=== PATIENT | female | born 1970 | race Two or more races ===

== ENCOUNTER 2017-01-20 18:00 | Inpatient (IN) | payer SELFPAY ==
[2017-01-20] MEDS ORDERED: ONDANSETRON 4 MG TAB.RAPDIS PO ONE (19:05)
[2017-01-20] MEDS ORDERED: LANSOPRAZOLE 30 MG TAB.RAP.DR PO ONE (19:07)
--- NOTE | 2017-01-20 19:10 | ER Document Report ---
ED Medical Screen (RME) - General Chief Complaint: Abdominal Injury Stated Complaint: POSSIBLE SEIZURE Time seen by provider: 19:03 Mode of Arrival: Ambulatory Information source: Patient Notes: 46 yo female with 2 minute full body new seizure witnessed by almost daughter in law, bit tongue, foaming at mouth, took 10 minutes to becom conscious. No ETOH in 2 months, cold turkey-2-3 shots daily. Has nausea, tremors, and upper abdominal pain now.
[2017-01-20] MEDS ORDERED: LORAZEPAM INJ 2 MG/1 ML VIAL IV ONE (21:14)
[2017-01-20] MEDS ORDERED: LEVETIRACETAM 500 MG TABLET PO ONE (21:20)
--- NOTE | 2017-01-20 21:20 | ER Document Report ---
ED General - General Chief Complaint: Probable Seizure Stated Complaint: POSSIBLE SEIZURE Mode of Arrival: Wheelchair Information source: Patient Notes: 46-year-old female presents after a seizure episode lasting a few minutes prior to arrival, patient bit her tongue. Patient was brought to the trauma bay after having a second seizure in the emergency department. Patient notes she has not had alcohol in 2-3 months. Denies drug or any other medications TRAVEL OUTSIDE OF THE [place] IN LAST 30 DAYS: No - HPI Onset: Just prior to arrival Onset/Duration: Sudden Quality of pain: Achy Severity: Mild Pain Level: 1 Associated symptoms: Other Exacerbated by: Denies Relieved by: Denies Similar symptoms previously: No Recently seen / treated by doctor: No - Related Data Allergies/Adverse Reactions: No Known Allergies Allergy (Unverified 01/20/17 19:09) Home Medications: Current Home Medications No Home Medications 01/20/17 [History] Past Medical History - General Information source: Patient - Social History Smoking Status: Never Smoker Cigarette use (# per day): No Chew tobacco use (# tins/day): No Smoking Education Provided: No Family History: Reviewed & Not Pertinent Renal/ Medical History: Denies: Hx Peritoneal Dialysis Review of Systems - Review of Systems Notes: REVIEW OF SYSTEMS: CONSTITUTIONAL : Denies fever, chills, or sweats. Denies recent illness. EENT: Denies eye, ear, throat, or mouth pain or symptoms. Denies nasal or sinus congestion or discharge. Denies throat, tongue, or mouth swelling or difficulty swallowing. CARDIOVASCULAR: Denies chest pain. Denies palpitations or racing or irregular heart beat. Denies ankle edema. RESPIRATORY: Denies cough, cold, or chest congestion. Denies shortness of breath, difficulty breathing, or wheezing. GASTROINTESTINAL: Denies abdominal pain or distention. Denies nausea, vomiting , or diarrhea. Denies blood in vomitus, stools, or per rectum. Denies black, tarry stools. Denies constipation. GENITOURINARY: Denies difficulty urinating, painful urination, burning, frequency, blood in urine, or discharge. FEMALE GENITOURINARY: Denies vaginal bleeding, heavy or abnormal periods, irregular periods. Denies vaginal discharge or odor. MUSCULOSKELETAL: Denies back or neck pain or stiffness. Denies joint pain or swelling. SKIN: Denies rash, lesions or sores. HEMATOLOGIC : Denies easy bruising or bleeding. LYMPHATIC: Denies swollen, enlarged glands. NEUROLOGICAL: Admits seizure PSYCHIATRIC: Denies anxiety or stress. Denies depression, suicidal ideation, or homicidal ideation. ALL OTHER SYSTEMS REVIEWED AND NEGATIVE. Dictation was performed using [employer] voice recognition software PHYSICAL EXAMINATION: GENERAL: Well-appearing, well-nourished and in no acute distress. HEAD: Atraumatic, normocephalic. EYES: Pupils equal round and reactive to light, extraocular movements intact, conjunctiva are normal. ENT: Nares patent, oropharynx clear without exudates. Moist mucous membranes. Patient bit her tongue contusion with abrasion of the right anterior tip NECK: Normal range of motion, supple without lymphadenopathy LUNGS: Breath sounds clear to auscultation bilaterally and equal. No wheezes rales or rhonchi. HEART: Regular rate and rhythm without murmurs ABDOMEN: Soft, nontender, nondistended abdomen. No guarding, no rebound. No masses appreciated. Female : deferred Musculoskeletal: Normal range of motion, no pitting or edema. No cyanosis. NEUROLOGICAL: Patient was seizing in the trauma bay Cranial nerves grossly intact. Normal speech, normal gait. Normal sensory, motor exams PSYCH: Normal mood, normal affect. SKIN: Warm, Dry, normal turgor, no rashes or lesions noted. Physical Exam - Vital signs Vitals: Temp Pulse BP Pulse Ox 98.1 F 73 149/90 H 98 01/20/17 19:08 01/20/17 19:08 01/20/17 19:08 01/20/17 19:08 Course - Re-evaluation Re-evalutation: 01/20/17 21:14 Patient brought back emergently 01/20/17 21:41 Lab work is pending right now, CT of the head was negative patient will be given a loading dose of Keppra and Ativan 01/20/17 23:18 Patient's friend who she is staying with states the patient last drank yesterday , this would explain the patient's seizures. I will admit for alcohol withdrawal - Vital Signs Vital signs: Temp Pulse Resp BP Pulse Ox 98.1 F 73 29 H 157/110 H 96 01/20/17 19:08 01/20/17 19:08 01/20/17 22:05 01/20/17 22:01 01/20/17 22:05 - Laboratory Result Diagrams: 01/20/17 21:10 01/20/17 21:10 Laboratory results interpreted by me: 01/20/17 01/20/17 01/20/17 21:04 21:10 21:10 RBC 3.33 L Hgb 11.8 L Hct 35.5 L MCV 107 H MCH 35.4 H RDW 20.3 H Plt Count 123 L Chloride 96 L Carbon Dioxide 20 L Anion Gap 27 H BUN 3 L Glucose 133 H POC Glucose 136 H Total Bilirubin 2.3 H Direct Bilirubin 1.1 H AST 371 H ALT 82 H Alkaline Phosphatase 181 H Total Protein 9.2 H - Diagnostic Test Radiology reviewed: Image reviewed, Reports reviewed Discharge - Discharge Clinical Impression: Seizure Alcohol withdrawal syndrome Qualifiers: Complication of substance-induced condition: with delirium Qualified Code(s): F10.231 - Alcohol dependence with withdrawal delirium Injury of tongue Qualifiers: Encounter type: initial encounter Qualified Code(s): S09.93XA - Unspecified injury of face, initial encounter Condition: Serious Disposition: ADMITTED INPATIENT Admitting Provider: Hospitalist Unit Admitted: IMCU
[2017-01-20 21:26] LABS: ABSOLUTE LYMPHOCYTES (AUTO) 0.9 10^3/uL (0.5-4.7); ABSOLUTE MONOCYTES (AUTO) 0.5 10^3/uL (0.1-1.4); ABSOLUTE NEUT (AUTO) 4.3 10^3/uL (1.7-8.2); BASOPHILS % (AUTO) 0.8 % (0-2); EOSINOPHILS % (AUTO) 0.1 % (0-6); HEMATOCRIT 35.5 % (36.0-47.0); HEMOGLOBIN 11.8 g/dL (12.0-15.5); HGB HCT DIFFERENCE -0.1; LYMPHOCYTES % (AUTO) 15.7 % (13-45); MEAN CORPUSCULAR HEMOGLOBIN 35.4 pg (27.0-33.4); MEAN CORPUSCULAR HGB CONC 33.2 g/dL (32.0-36.0); MEAN CORPUSCULAR VOLUME 107 fl (80-97); MONOCYTES % (AUTO) 8.9 % (3-13); RED BLOOD COUNT 3.33 10^6/uL (3.72-5.28); RED CELL DISTRIBUTION WIDTH 20.3 % (11.5-14.0); SEGMENTED NEUTROPHILS % (AUTO) 74.5 % (42-78); WHITE BLOOD COUNT 5.8 10^3/uL (4.0-10.5)
[2017-01-20 21:46] LABS: ALANINE AMINOTRANSFERASE 82 U/L (9-52); ALBUMIN 4.9 g/dL (3.5-5.0); ALKALINE PHOSPHATASE 181 U/L (38-126); ASPARTATE AMINO TRANSFERASE 371 U/L (14-36); BILIRUBIN,DIRECT 1.1 mg/dL (0.0-0.4); BILIRUBIN,TOTAL 2.3 mg/dL (0.2-1.3); BLOOD UREA NITROGEN 3 mg/dL (7-20); CALCIUM 10.2 mg/dL (8.4-10.2); CREATININE RESULT 0.55 mg/dL (0.52-1.25); GLUCOSE 133 mg/dL (75-110); LIPASE 65.1 U/L (23-300); TOTAL PROTEIN 9.2 g/dL (6.3-8.2)
[2017-01-20 21:57] LABS: CARBON DIOXIDE 20 mmol/L (22-30); CHLORIDE 96 mmol/L (98-107); POTASSIUM 3.9 mmol/L (3.6-5.0); SODIUM 143.2 mmol/L (137-145)
[2017-01-20 22:02] LABS: ALCOHOL < 10 mg/dL (NONE DETECTED); ANION GAP 27 (5-19)
[2017-01-20] MEDS ORDERED: THIAMINE HCL 100 MG, FOLIC ACID 1 MG in NORMAL SALINE 50 ML IV ONE (23:22)
[2017-01-20] MEDS ORDERED: IPRATROPIUM/ALBUTEROL 0.5-2.5 MG/3 ML AMPUL NEB PRN (23:24)
[2017-01-20] MEDS ORDERED: ACETAMINOPHEN 325 MG TABLET PO PRN (23:24)
[2017-01-20] MEDS ORDERED: CALCIUM CARBONATE 500 MG TABLET PO PRN (23:24)
[2017-01-20] MEDS ORDERED: ONDANSETRON HCL INJ/PF 4 MG/2 ML SDV IV PRN (23:24)
[2017-01-20] MEDS ORDERED: LIDOCAINE 2% VISCOUS SOLN 20 ML UDCUP PO ONE (23:27)
[2017-01-20] MEDS ORDERED: NORMAL SALINE 1000 ML 1,000 ML IV ONE (23:54)
--- NOTE | 2017-01-21 00:59 | PDOC H&P ---
History of Present Illness Admission Date/PCP: 01/20/17 23:24 Patient complains of: Seizure History of Present Illness: FRANCISCO JAVIER GIVENS is a 46 year old female without significant past medical history though has not sought recent medical evaluation had been her usual state of health until approximately 1 hour prior to ER evaluation where she has an witnessed seizure resulting in tongue biting and brief "postictal state. While waiting in the emergency room she has a second seizure event with tongue biting receiving Ativan and Keppra. Her workup reveals macrocytosis, thrombocytopenia and abnormal LFTs. She does admit to substantial alcohol intake on a daily basis but was abstaining for approximately 24 hours while visiting her grandchildren and [place]. She has difficulty quantifying her regular alcohol intake but suggest several large shots and beer per day. She denies previous seizure or abstinence from alcohol. Past Medical History Medical History: None Past Surgical History Past Surgical History: Reports: None Social History Information Source: Patient Lives with: Family Smoking Status: Never Smoker Frequency of Alcohol Use: Heavy Drugs: None - Advance Directive Resuscitation Status: Full Code Family History Family History: COPD, Hypertension Parental Family History Reviewed: Yes Children Family History Reviewed: Yes Sibling(s) Family History Reviewed.: Yes Medication/Allergy Home Medications: No Home Medications 01/20/17 Allergies/Adverse Reactions: No Known Allergies Allergy (Unverified 01/20/17 19:09) Review of Systems Constitutional: ABSENT: chills, fever(s), headache(s), weight gain, weight loss Eyes: ABSENT: visual disturbances Ears: ABSENT: hearing changes Cardiovascular: ABSENT: chest pain, dyspnea on exertion, edema, orthropnea, palpitations Respiratory: ABSENT: cough, hemoptysis Gastrointestinal: ABSENT: abdominal pain, constipation, diarrhea, hematemesis, hematochezia, nausea, vomiting Genitourinary: ABSENT: dysuria, hematuria Musculoskeletal: ABSENT: joint swelling Integumentary: ABSENT: rash, wounds Neurological: ABSENT: abnormal gait, abnormal speech, confusion, dizziness, focal weakness, syncope Psychiatric: ABSENT: anxiety, depression, homidical ideation, suicidal ideation Endocrine: ABSENT: cold intolerance, heat intolerance, polydipsia, polyuria Hematologic/Lymphatic: ABSENT: easy bleeding, easy bruising Physical Exam Vital Signs: Temp Pulse Resp BP Pulse Ox 98.1 F 73 29 H 157/110 H 96 01/20/17 19:08 01/20/17 19:08 01/20/17 22:05 01/20/17 22:01 01/20/17 22:05 General appearance: PRESENT: no acute distress, cooperative, disheveled, morbidly obese Head exam: PRESENT: atraumatic, normocephalic Eye exam: PRESENT: conjunctiva pink, EOMI, PERRLA. ABSENT: scleral icterus Ear exam: PRESENT: normal external ear exam Mouth exam: PRESENT: laceration - Tongue, tongue midline Neck exam: ABSENT: carotid bruit, JVD, lymphadenopathy, thyromegaly Respiratory exam: PRESENT: clear to auscultation ann. ABSENT: rales, rhonchi, wheezes Cardiovascular exam: PRESENT: RRR. ABSENT: diastolic murmur, rubs, systolic murmur Pulses: PRESENT: normal dorsalis pedis pul Vascular exam: PRESENT: normal capillary refill GI/Abdominal exam: PRESENT: normal bowel sounds, soft. ABSENT: distended, guarding, mass, organolmegaly, rebound, tenderness Rectal exam: PRESENT: deferred Extremities exam: PRESENT: full ROM. ABSENT: calf tenderness, clubbing, pedal edema Neurological exam: PRESENT: alert, awake, oriented to person, oriented to place , oriented to time, oriented to situation, CN II-XII grossly intact. ABSENT: motor sensory deficit Psychiatric exam: PRESENT: appropriate affect, normal mood. ABSENT: homicidal ideation, suicidal ideation Skin exam: PRESENT: dry, intact, warm. ABSENT: cyanosis, rash Results Impressions: Head CT 01/20/17 19:05 IMPRESSION: No acute intracranial finding. Assessment & Plan - Diagnosis (1) Alcohol withdrawal Qualifiers: Complication of substance-induced condition: with delirium Qualified Code(s): F10.231 - Alcohol dependence with withdrawal delirium Is this a current diagnosis for this admission?: YesPlan: Difficult to quantify she receive Ativan 4 mg IV every 4 hours when necessary in addition to thymine and folate with supportive care. Patient expresses wishes for long-term cessation (2) Seizure Is this a current diagnosis for this admission?: YesPlan: History suggest secondary to abrupt alcohol cessation, continue supportive care when necessary Ativan (3) Thrombocytopenia Is this a current diagnosis for this admission?: YesPlan: Secondary to alcohol reevaluate CBC (4) Abnormal LFTs Is this a current diagnosis for this admission?: YesPlan: Secondary to alcohol reevaluate LFTs - Time Time Spent: 30 to 50 Minutes - Inpatient Certification Medical Necessity: Need Close Monitoring Due to Risk of Patient Decompensation
[2017-01-21 02:00] LABS: APPEARANCE,URINE SLIGHTLY-CLOUDY; BILIRUBIN,URINE NEGATIVE (NEGATIVE); GLUCOSE, URINE NEGATIVE (NEGATIVE); KETONES,URINE 20 mg/dL (NEGATIVE); LEUKOCYTE ESTERASE,URINE TRACE (NEGATIVE); NITRITE,URINE NEGATIVE (NEGATIVE); PROTEIN,URINE 100 mg/dL (NEGATIVE); URINE SPECIFIC GRAVITY 1.017
[2017-01-21 02:14] LABS: URINE BARBITURATES SCREEN NEGATIVE; URINE METHADONE SCREEN NEGATIVE; URINE OPIATES LOW NEGATIVE; URINE PHENCYCLIDINE SCREEN NEGATIVE
[2017-01-21] MEDS: HEPARIN SOD (PORCINE) 5,000 UNIT/ML 1 ML SYRINGE SUBCUT SCH ×3 (05:50→22:17)
[2017-01-21 07:39] LABS: ALANINE AMINOTRANSFERASE 65 U/L (9-52); ALBUMIN 3.7 g/dL (3.5-5.0); ALKALINE PHOSPHATASE 126 U/L (38-126); ANION GAP 11 (5-19); ASPARTATE AMINO TRANSFERASE 224 U/L (14-36); BILIRUBIN,DIRECT 0.6 mg/dL (0.0-0.4); BILIRUBIN,TOTAL 1.8 mg/dL (0.2-1.3); BLOOD UREA NITROGEN 3 mg/dL (7-20); CALCIUM 9.2 mg/dL (8.4-10.2); CARBON DIOXIDE 29 mmol/L (22-30); CHLORIDE 99 mmol/L (98-107); GLUCOSE 97 mg/dL (75-110); POTASSIUM 3.7 mmol/L (3.6-5.0); SODIUM 138.9 mmol/L (137-145); TOTAL PROTEIN 7.1 g/dL (6.3-8.2)
[2017-01-21 07:45] LABS: HEMATOCRIT 29.3 % (36.0-47.0); HGB HCT DIFFERENCE 0.7; MEAN CORPUSCULAR HEMOGLOBIN 36.1 pg (27.0-33.4); MEAN CORPUSCULAR HGB CONC 34.2 g/dL (32.0-36.0); MEAN CORPUSCULAR VOLUME 106 fl (80-97); RED BLOOD COUNT 2.78 10^6/uL (3.72-5.28); RED CELL DISTRIBUTION WIDTH 19.8 % (11.5-14.0); WHITE BLOOD COUNT 5.7 10^3/uL (4.0-10.5)
--- NOTE | 2017-01-21 07:51 | EKG REPORT ---
SEVERITY:- BORDERLINE ECG - SINUS RHYTHM BORDERLINE PROLONGED QT INTERVAL : Confirmed by: Blaine Dickinson MD 21-Jan-2017 07:50:45
[2017-01-21 07:55] LABS: BAND NEUTROPHILS % (MANUAL) 1 % (3-5); BASOPHILS % (MANUAL) 1 % (0-2); EOSINOPHILS % (MANUAL) 0 % (0-6); HYPOCHROMASIA 2+; LYMPHOCYTES % (MANUAL) 27 % (13-45); NUCLEATED RED BLOOD CELLS 2 /100 WBC (0); OVALOCYTES SLIGHT; POIKILOCYTOSIS 1+; POLYCHROMASIA 1+; SCHISTOCYTES SLIGHT; TARGET CELLS 3+; TOTAL CELLS COUNTED 100; TOXIC GRANULATION SLIGHT
--- NOTE | 2017-01-21 08:05 | PDOC PROGRESS REPORT ---
Subjective Progress Note for:: 01/21/17 Subjective:: Pt feels better. Had several seizure episodes. Given keppra bolus. No reported seizure since. Complains of coughing but no SOB, chills, fegver nor pleurisy. Has hx of tremors and shaking at home if not drinking alcohol and is relived after ETOH intake. Physical Exam Vital Signs: Temp Pulse Resp BP Pulse Ox 98.1 F 73 23 H 163/104 H 97 01/20/17 19:08 01/20/17 19:08 01/21/17 00:55 01/20/17 22:46 01/21/17 00:55 General appearance: PRESENT: no acute distress, cooperative, obese Head exam: PRESENT: normocephalic Eye exam: PRESENT: EOMI Mouth exam: PRESENT: moist, neck supple Neck exam: ABSENT: JVD Respiratory exam: PRESENT: clear to auscultation ann. ABSENT: rhonchi, wheezes Cardiovascular exam: PRESENT: RRR. ABSENT: gallop GI/Abdominal exam: PRESENT: normal bowel sounds, soft. ABSENT: distended, tenderness Extremities exam: ABSENT: pedal edema Neurological exam: PRESENT: alert, awake, oriented to situation, other - no tremors. Skin exam: PRESENT: dry, warm. ABSENT: cyanosis Results Laboratory Results: 01/21/17 06:58 01/21/17 06:58 01/21/17 01/21/17 01/21/17 00:28 06:58 06:58 WBC 5.7 RBC 2.78 L Hgb 10.0 L Hct 29.3 L MCV 106 H MCH 36.1 H MCHC 34.2 RDW 19.8 H Plt Count 99 L Seg Neutrophils % Not Reportable Lymphocytes % Not Reportable Monocytes % Not Reportable Eosinophils % Not Reportable Basophils % Not Reportable Absolute Neutrophils Not Reportable Absolute Lymphocytes Not Reportable Absolute Monocytes Not Reportable Absolute Eosinophils Not Reportable Absolute Basophils Not Reportable Sodium 138.9 Potassium 3.7 Chloride 99 Carbon Dioxide 29 Anion Gap 11 BUN 3 L Creatinine 0.50 L Est GFR ( Amer) > 60 Est GFR (Non-Af Amer) > 60 Glucose 97 Calcium 9.2 Total Bilirubin 1.8 H AST 224 H ALT 65 H Alkaline Phosphatase 126 Total Protein 7.1 Albumin 3.7 Urine Color YELLOW Urine Appearance SLIGHTLY-CLOUDY Urine pH 6.0 Ur Specific [place] 1.017 Urine Protein 100 H Urine Glucose (UA) NEGATIVE Urine Ketones 20 H Urine Blood SMALL H Urine Nitrite NEGATIVE Ur Leukocyte Esterase TRACE H Urine WBC (Auto) 67 Urine RBC (Auto) 28 Impressions: Head CT 01/20/17 19:05 IMPRESSION: No acute intracranial finding. Assessment & Plan - Diagnosis (1) Alcohol withdrawal Qualifiers: Complication of substance-induced condition: with delirium Qualified Code(s): F10.231 - Alcohol dependence with withdrawal delirium Is this a current diagnosis for this admission?: Yes (2) Seizure Is this a current diagnosis for this admission?: Yes (3) Abnormal LFTs Is this a current diagnosis for this admission?: Yes (4) Thrombocytopenia Is this a current diagnosis for this admission?: Yes (5) Abnormal urinalysis Is this a current diagnosis for this admission?: Yes (6) Macrocytic anemia Is this a current diagnosis for this admission?: Yes - Time Time Spent with patient: 25-34 minutes - Plan Summary Plan Summary: Cont. IVF, ativan. Start oral keppra. Give supplemental thiamine, folic acid, MVI. Begin rocephin. Check urine culture and anemia panel/stool for occult blood.
[2017-01-21 09:56] LABS: FOLATE 2.23 ng/mL (>2.76)
[2017-01-21] MEDS: FOLIC ACID 1 MG TABLET PO SCH (10:26)
[2017-01-21] MEDS: CEFTRIAXONE 1 GM/D5W RTU 50 ML IV SCH (10:26)
[2017-01-21] MEDS: DOCUSATE SODIUM 100 MG CAPSULE PO SCH (10:26)
[2017-01-21] MEDS: THIAMINE HCL 100 MG TABLET PO SCH (10:26)
[2017-01-21] MEDS: MULTIVITAMIN TABLET PO SCH (10:27)
[2017-01-21] MEDS: LEVETIRACETAM 500 MG TABLET PO SCH ×2 (10:27→22:26)
[2017-01-21] MEDS: CLONIDINE HCL 0.1 MG TABLET PO SCH ×2 (14:08→22:27)
[2017-01-21] MEDS: LORAZEPAM INJ 2 MG/1 ML VIAL IV PRN (19:32)
[2017-01-22] MEDS: HEPARIN SOD (PORCINE) 5,000 UNIT/ML 1 ML SYRINGE SUBCUT SCH ×3 (05:23→21:40)
[2017-01-22] MEDS: CLONIDINE HCL 0.1 MG TABLET PO SCH (05:25)
[2017-01-22 06:57] LABS: HEMATOCRIT 28.4 % (36.0-47.0); HEMOGLOBIN 9.7 g/dL (12.0-15.5); HGB HCT DIFFERENCE 0.7; MEAN CORPUSCULAR HEMOGLOBIN 36.2 pg (27.0-33.4); MEAN CORPUSCULAR HGB CONC 34.3 g/dL (32.0-36.0); MEAN CORPUSCULAR VOLUME 106 fl (80-97); RED BLOOD COUNT 2.69 10^6/uL (3.72-5.28); RED CELL DISTRIBUTION WIDTH 19.4 % (11.5-14.0); WHITE BLOOD COUNT 4.7 10^3/uL (4.0-10.5)
[2017-01-22 07:07] LABS: ANION GAP 11 (5-19); BLOOD UREA NITROGEN 5 mg/dL (7-20); CARBON DIOXIDE 29 mmol/L (22-30); CHLORIDE 99 mmol/L (98-107); CREATININE RESULT 0.56 mg/dL (0.52-1.25); GLUCOSE 80 mg/dL (75-110); POTASSIUM 3.1 mmol/L (3.6-5.0); SODIUM 139.2 mmol/L (137-145)
[2017-01-22] MEDS: CEFTRIAXONE 1 GM/D5W RTU 50 ML IV SCH (09:35)
[2017-01-22] MEDS: FOLIC ACID 1 MG TABLET PO SCH (09:36)
[2017-01-22] MEDS: LEVETIRACETAM 500 MG TABLET PO SCH ×2 (09:36→21:41)
[2017-01-22] MEDS: DOCUSATE SODIUM 100 MG CAPSULE PO SCH (09:36)
[2017-01-22] MEDS: THIAMINE HCL 100 MG TABLET PO SCH (09:36)
[2017-01-22] MEDS: LORAZEPAM INJ 2 MG/1 ML VIAL IV PRN (09:36)
[2017-01-22] MEDS: MULTIVITAMIN TABLET PO SCH (09:36)
--- NOTE | 2017-01-22 10:42 | PDOC PROGRESS REPORT ---
Subjective Progress Note for:: 01/22/17 Subjective:: Pt feels better. Had several seizure episodes before but not last night or yesterday. No SOB, chills, fever nor pleurisy. Soreness in the mouth from the tongue biting versus . Has hx of tremors and shaking at home if not drinking alcohol and is relived after ETOH intake. She received several doses of Ativan but patient is not having any tremors or withdrawal symptoms. Physical Exam Vital Signs: Temp Pulse Resp BP Pulse Ox 98.7 F 72 16 110/68 98 01/22/17 07:24 01/22/17 08:00 01/22/17 08:00 01/22/17 07:24 01/22/17 08:00 Intake & Output 01/21/17 01/22/17 01/23/17 06:59 06:59 06:59 Intake Total 4 Balance 4 Weight 89.9 kg General appearance: PRESENT: no acute distress, cooperative, obese Head exam: PRESENT: normocephalic Eye exam: PRESENT: EOMI Mouth exam: PRESENT: moist, neck supple Neck exam: ABSENT: JVD Respiratory exam: PRESENT: clear to auscultation ann. ABSENT: rhonchi, wheezes Cardiovascular exam: PRESENT: RRR. ABSENT: gallop GI/Abdominal exam: PRESENT: soft. ABSENT: distended, tenderness Extremities exam: ABSENT: pedal edema Neurological exam: PRESENT: alert, awake, oriented to person, oriented to place , oriented to time, oriented to situation Skin exam: PRESENT: dry, warm. ABSENT: cyanosis Results Laboratory Results: 01/22/17 06:20 01/22/17 06:20 01/22/17 01/22/17 06:20 06:20 WBC 4.7 RBC 2.69 L Hgb 9.7 L Hct 28.4 L MCV 106 H MCH 36.2 H MCHC 34.3 RDW 19.4 H Plt Count 86 L Sodium 139.2 Potassium 3.1 L Chloride 99 Carbon Dioxide 29 Anion Gap 11 BUN 5 L Creatinine 0.56 Est GFR ( Amer) > 60 Est GFR (Non-Af Amer) > 60 Glucose 80 Calcium 9.0 Impressions: Head CT 01/20/17 19:05 IMPRESSION: No acute intracranial finding. Assessment & Plan - Diagnosis (1) Alcohol withdrawal Qualifiers: Complication of substance-induced condition: with delirium Qualified Code(s): F10.231 - Alcohol dependence with withdrawal delirium Is this a current diagnosis for this admission?: Yes (2) Seizure Is this a current diagnosis for this admission?: Yes (3) Abnormal LFTs Is this a current diagnosis for this admission?: Yes (4) Thrombocytopenia Is this a current diagnosis for this admission?: Yes (5) Abnormal urinalysis Is this a current diagnosis for this admission?: Yes (6) Macrocytic anemia Is this a current diagnosis for this admission?: Yes - Time Time Spent with patient: 25-34 minutes - Plan Summary Plan Summary: We will discontinue clonidine. Discontinue Ativan. Off IV fluids. We are going to recheck hemoglobin and hematocrit. This is probably dilutional from recent IV hydration. Continue supplements. Replace potassium and recheck level in the morning.
[2017-01-22] MEDS: POTASSIUM CHLORIDE 10 MEQ TABLET.SA PO SCH ×2 (11:33→17:25)
[2017-01-23] MEDS: HEPARIN SOD (PORCINE) 5,000 UNIT/ML 1 ML SYRINGE SUBCUT SCH ×2 (06:01→14:59)
[2017-01-23 07:09] LABS: HEMATOCRIT 29.1 % (36.0-47.0); HEMOGLOBIN 9.9 g/dL (12.0-15.5); HGB HCT DIFFERENCE 0.6; MEAN CORPUSCULAR HEMOGLOBIN 36.3 pg (27.0-33.4); MEAN CORPUSCULAR HGB CONC 34.1 g/dL (32.0-36.0); MEAN CORPUSCULAR VOLUME 107 fl (80-97); RED BLOOD COUNT 2.73 10^6/uL (3.72-5.28); RED CELL DISTRIBUTION WIDTH 19.3 % (11.5-14.0); WHITE BLOOD COUNT 5.5 10^3/uL (4.0-10.5)
[2017-01-23 07:39] LABS: ANION GAP 10 (5-19); BLOOD UREA NITROGEN 6 mg/dL (7-20); CALCIUM 9.3 mg/dL (8.4-10.2); CARBON DIOXIDE 28 mmol/L (22-30); CHLORIDE 101 mmol/L (98-107); CREATININE RESULT 0.61 mg/dL (0.52-1.25); GLUCOSE 82 mg/dL (75-110); POTASSIUM 4.1 mmol/L (3.6-5.0); SODIUM 139.4 mmol/L (137-145)
[2017-01-23] MEDS: DOCUSATE SODIUM 100 MG CAPSULE PO SCH (09:39)
[2017-01-23] MEDS: LEVETIRACETAM 500 MG TABLET PO SCH (09:39)
[2017-01-23] MEDS: MULTIVITAMIN TABLET PO SCH (09:39)
[2017-01-23] MEDS: FOLIC ACID 1 MG TABLET PO SCH (09:40)
[2017-01-23] MEDS: THIAMINE HCL 100 MG TABLET PO SCH (09:40)
[2017-01-23] MEDS: CEFTRIAXONE 1 GM/D5W RTU 50 ML IV SCH (09:40)
[2017-01-23 12:25] VITALS: BP 124/93
--- NOTE | 2017-01-23 15:58 | PDOC DISCHARGE SUMMARY ---
General - Admit/Disc Date/PCP Admission Date/Primary Care Provider: 01/20/17 23:24 Discharge Date: 01/23/17 - Discharge Diagnosis (1) Alcohol withdrawal Is this a current diagnosis for this admission?: Yes (2) Seizure Is this a current diagnosis for this admission?: Yes (3) Abnormal LFTs Is this a current diagnosis for this admission?: Yes (4) Thrombocytopenia Is this a current diagnosis for this admission?: Yes (5) Abnormal urinalysis Is this a current diagnosis for this admission?: Yes (6) Macrocytic anemia Is this a current diagnosis for this admission?: Yes - Additional Information Resuscitation Status: Full Code Discharge Diet: Regular, Other (Comments) - as tolerated Discharge Activity: Activity As Tolerated, Balance Activity w/Rest Home Medications: Folic Acid [Folvite 1 mg Tablet] 1 mg PO DAILY #30 tablet 01/23/17 Levetiracetam [Keppra 500 mg Tablet] 500 mg PO Q12 #60 tablet 01/23/17 Lidocaine HCl [Lidocaine HCl Viscous] 10 ml MM TID PRN 30 Days 01/23/17 Multivitamin [Tab-A-Martha (Multiple Vitamin) Tablet] 1 tab PO DAILY tablet 01/23 Thiamine HCl [Thiamine 100 mg Tablet] 100 mg PO DAILY #30 tablet 01/23/17 Additional Information: Stop alcohol History of Present Illness Patient complains of: Seizure History of Present Illness: FRANCISCO JAVIER GIVENS is a 46 year old female, no significant past medical history, chronic alcoholic beverage drinker, presents to the hospital because of a witnessed seizure. The patient was brought to the emergency room where she had another episode of seizure, therefore intravenous Keppra was given and the patient was referred for admission. Alcohol level was less than 10. Intravenous fluid was likewise started. For details please refer to history and physical examination performed by the admitting physician. Hospital Course Hospital Course: The patient was admitted to [facility]. Intravenous fluid was given. Supplemental thiamine and folic acid and multivitamin started. Urinalysis was noted to be abnormal, urine culture was done, intravenous ceftriaxone was given. Patient was monitored for withdrawal symptoms and given Ativan as needed intravenously. Patient had significant tongue biting and therefore she was maintained on Keppra, and no further seizures were noted while in the hospital. Eventually, no tremors were noted, and the Ativan was discontinued and she did well. Other workups include anemia panel showing low folic acid level. Head CT scan shows no acute abnormality. EKG shows sinus rhythm. Her urine culture was eventually negative and patient completed treatment for urinary tract infection. Patient was educated to stop drinking alcohol, consequences including cirrhosis was discussed and patient understood. She complains having soreness in the mouth while eating . She was advised to try viscous lidocaine swish and spit prior to meals . The rest of the hospital stay is unremarkable. Physical Exam Vital Signs: Temp Pulse Resp BP Pulse Ox 98.0 F 66 18 124/93 H 98 01/23/17 15:37 01/23/17 15:37 01/23/17 15:37 01/23/17 15:37 01/23/17 15:37 Intake & Output 01/22/17 01/23/17 01/24/17 06:59 06:59 06:59 Intake Total 4 1296 355 Balance 4 1296 355 Weight 89.9 kg 90.1 kg General appearance: PRESENT: no acute distress, cooperative Head exam: PRESENT: normocephalic Eye exam: PRESENT: conjunctiva pink, EOMI Ear exam: ABSENT: drainage Mouth exam: PRESENT: moist, tongue midline - Multiple ecchymosis with no active bleeding noted on the lateral aspect of the tongue. Neck exam: ABSENT: JVD Respiratory exam: PRESENT: clear to auscultation ann. ABSENT: rhonchi, wheezes Cardiovascular exam: PRESENT: RRR. ABSENT: gallop GI/Abdominal exam: PRESENT: normal bowel sounds, soft. ABSENT: distended, tenderness Extremities exam: ABSENT: pedal edema Neurological exam: PRESENT: alert, awake, oriented to person, oriented to place , oriented to time, oriented to situation Skin exam: PRESENT: dry, warm. ABSENT: cyanosis Results Laboratory Results: 01/23/17 06:27 01/23/17 06:27 01/23/17 01/23/17 06:27 06:27 WBC 5.5 RBC 2.73 L Hgb 9.9 L Hct 29.1 L MCV 107 H MCH 36.3 H MCHC 34.1 RDW 19.3 H Plt Count 103 L Sodium 139.4 Potassium 4.1 Chloride 101 Carbon Dioxide 28 Anion Gap 10 BUN 6 L Creatinine 0.61 Est GFR ( Amer) > 60 Est GFR (Non-Af Amer) > 60 Glucose 82 Calcium 9.3 Impressions: Head CT 01/20/17 19:05 IMPRESSION: No acute intracranial finding. Qualifiers [place] BEING DISCHARGED WITH ANY OF THE FOLLOWING DIAGNOSIS?: No Plan Discharge Plan: Follow-up with primary care physician in one week. Follow-up with neurology in 1-2 weeks. Time Spent: Less than 30 Minutes
== END 2017-01-23 16:42 | disposition home or self-care (01) | DRG 897 ==
LOC: ER 18:00 → EH 23:24 → UNDOADMIN 23:37 → EH 23:37 → 3S 01-21 18:53
PROVIDERS: ADMIT Internal Medicine; ATTEND Internal Medicine
DX: F10.231 Alcohol dependence with withdrawal delirium (principal); N39.0 Urinary tract infection, site not specified; R56.9 Unspecified convulsions; D75.89 Other specified diseases of blood and blood-forming organs; D69.6 Thrombocytopenia, unspecified; D53.9 Nutritional anemia, unspecified; S00.532A Contusion of oral cavity, initial encounter; S00.512A Abrasion of oral cavity, initial encounter; Y90.0 Blood alcohol level of less than 20 mg/100 ml
CPT/HCPCS: 36415; 70450; 80048; 80053; 80307; 81001; 82607; 82728; 82746; 82962; 83540; 83550; 83690; 84703; 85025; 85027; 85045; 87086; 93005; 93010; 96374; 99285; J0696; J2060; J2405; J3490; J7030